=== PATIENT | female | born 1940 | race Caucasian/White ===

== ENCOUNTER → 2019-03-22 | Emergency (ER) | payer OTHER, MEDICARE ==
[~2019-03-22] MED LIST: diphenhydrAMINE HCL 12.5 MG/5 ML BULK BOTTLE ONE; diphenhydrAMINE HCL 25 MG CAPSULE (FP) PO ONE; methylPREDNISolone NA SUCC 125 MG/2 ML VIAL IVPB ONE; methylPREDNISolone NA SUCC 125 MG/2 ML VIAL ONE
[2019-03-22 00:55] VITALS: BMI 25.4
--- NOTE | 2019-03-22 01:18 | PDOC ---
History of Present Illness - General Chief Complaint: Tongue Swelling Stated Complaint: SWOLLEN TONGUE Time Seen by Provider: 03/22/19 00:46 - History of Present Illness Initial Comments: This is a 78-year-old woman with a history of HTN, HLD presents with swollen tongue for the last hour. Patient had no symptoms when she went to sleep but was awakened with a sensation of fullness in her tongue. She has no difficulty breathing or wheezing. She denies sensation of itching or any rash. Patient's hypertension has been treated for years with lisinopril; no previous history of lip/tongue swelling. She has had no recent exposure to new medications/ supplements/vitamins or foods. No known drug allergies. Patient normally takes her lisinopril dosage in the morning; she has been compliant with her medications with most recent dose of lisinopril taken Wednesday morning. Past History - Past Medical History Allergies/Adverse Reactions: Allergies Allergy/AdvReac Type Severity Reaction Status Date / Time No Known Drug Allergies Allergy Verified 06/18/17 18:11 Home Medications: Ambulatory Orders Aspirin [Aspirin EC] 81 mg PO HS 11/13/14 Atenolol [Tenormin -] 25 mg PO HS 11/13/14 Calcium Carbonate/Vitamin D3 [Calcium 600-Vit D3 200 Tablet] 1 each PO BID 11/13 Ibandronate Sodium [Boniva (Monthly)] 150 mg PO Q30D 11/13/14 Multivitamins [Multivit ([facility] Formulary)] 1 tab PO DAILY 11/13/14 Simvastatin [Zocor -] 30 mg PO HS 11/13/14 Lisinopril 30 mg PO DAILY 02/24/16 Anemia: No Asthma: No 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 Disorders: Yes (MVP) CVA: No COPD: No CHF: No Dementia: No Diabetes: No GI Disorders: No 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) HTN: Yes Hypercholesterolemia: Yes Liver Disease: No Seizures: No Thyroid Disease: No - Surgical History Abdominal Surgery: No Appendectomy: No Cardiac Surgery: No Cholecystectomy: No Lung Surgery: No Neurologic Surgery: No Orthopedic Surgery: Yes (FX RIGHT WRIST WITH SURGERY 2012) - Psycho Social/Smoking Cessation Hx Smoking History: Never smoked Have you smoked in the past 12 months: No Information on smoking cessation initiated: No Hx Alcohol Use: No Drug/Substance Use Hx: No Substance Use Type: Alcohol Hx Substance Use Treatment: No *Physical Exam - Vital Signs Last Vital Signs Temp Pulse Resp BP Pulse Ox 98.2 F 81 15 152/80 100 03/22/19 00:53 03/22/19 00:53 03/22/19 00:53 03/22/19 00:53 03/22/19 00:53 - Physical Exam GENERAL: Elderly female, alert and oriented x3 with mild distress with swallowing but otherwise no acute distress; vital signs as noted HEAD: Normal with no signs of trauma. EYES: PERRLA, EOMI, sclera anicteric, conjunctiva clear. ENT: Tonguemoderate asymmetric edema(left side greater than right ) nares patent, no lip or uvular edema. Moist mucous membranes. NECK: Normal range of motion, supple without lymphadenopathy, JVD, or masses. LUNGS: Breath sounds equal, clear to auscultation bilaterally. No wheezes, and no crackles. HEART:Regular rate and rhythm, normal S1 and S2 without murmur, rub or gallop. ABDOMEN:.normal bowel sounds No guarding,tenderness or rebound.No masses No distention. EXTREMITIES: Normal range of motion, no edema. No clubbing or cyanosis. No erythema, or tenderness. NEUROLOGICAL: Cranial nerves II through XII grossly intact. Normal speech. No focal neurologic deficits MUSCULOSKELETAL: Back non-tender to palpation, no CVA tenderness SKIN: Warm, Dry, normal turgor, no rashes or lesions noted. Medical Decision Making - Medical Decision Making As noted above, this patient presents with sudden onset of tongue edema, awakening the patient approximately an hour prior to presentation. No associated urticaria or pruritus. No difficulty breathing, nausea or abdominal discomfort. The patient has been treated for many years with lisinopril. Exam as noted Clinical presentation most consistent with angioedema associated with FRANCIE inhibitor Bradykinin specific efrain agents not available here or at [facility] Solu-Medrol 125 mg IV administered; Benadryl 50 mg given.PO Case discussed with patient's cardiopulmonary technician, Dr. Mckenna; if no significant clinical response achieved, patient should be transferred to [facility]. 03/22/19 03:07 Reexamination reveals mild decrease in tongue edema but patient still has significant swelling. She feels somewhat better but still has some difficulty swallowing. Because of minimal clinical response, the patient will be transferred to [facility] for continued monitoring and treatment Case discussed with ED attending, Dr. Del Castillo who accepts the patient. 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
[2019-03-22 03:06] VITALS: BP 148/74; PULSE 78; TEMP 97.4
== END | disposition short-term general hospital (02) ==
LOC: FER 00:43
PROC: 3E033GC Introduction of Other Therapeutic Substance into Peripheral Vein, Percutaneous Approach (ICD-10-PCS; principal; 2019-03-22)
DX: T78.3XXA Angioneurotic edema, initial encounter (principal); I10 Essential (primary) hypertension; E78.5 Hyperlipidemia, unspecified; Z85.3 Personal history of malignant neoplasm of breast; I34.1 Nonrheumatic mitral (valve) prolapse
CPT/HCPCS: 99281-25

== ENCOUNTER 2021-08-28 12:48 | Emergency (ER) | payer OTHER, MEDICARE ==
[2021-08-28 13:03] VITALS: TEMP 98.4; BMI 26.3
[2021-08-28] MEDS ORDERED: BEBTELOVIMAB (EUA) 175 MG/2 ML VIAL IVPUSH ONE (13:22)
[2021-08-28 15:55] VITALS: BP 146/64; PULSE 74
== END 2021-08-28 15:35 | disposition home or self-care (01) ==
LOC: JCOVINFU 12:48
DX: U07.1 COVID-19 (principal)
CPT/HCPCS: 96374; 99284-25; M0222; Q0222